=== PATIENT | female | born 1995 | race Caucasian/White ===

== ENCOUNTER 2021-02-03 18:40 | Inpatient (IN) | payer OTHER ==
[~2021-02-03] VITALS: Ht 64 cm; Wt 90.8 kg
[2021-02-03] VITALS (15 sets, daily range): BP systolic 95–122; BP diastolic 50–74
[2021-02-03] MEDS ORDERED: TERBUTALINE INJ 1 MG/ML (BRETHINE) AMP SC PRN (19:45)
[2021-02-03] MEDS ORDERED: D5 LR IV SOLUTION 1,000 ML IV ONE (19:50)
[2021-02-03] MEDS: D5 LR IV SOLUTION 1,000 ML IV SCH (20:09)
[2021-02-03] MEDS: IBUPROFEN 600 MG (MOTRIN) TAB PO SCH (20:25)
[2021-02-03 20:28] LABS: BASOPHILS % (AUTO) 0 % (0-10); EOSINOPHILS # (AUTO) 0.3 10^3/uL (0.0-0.3); EOSINOPHILS % (AUTO) 4 % (0-10); HEMATOCRIT 32 % (35-52); HEMOGLOBIN 10.3 g/dL (11.5-16.0); LYMPHOCYTES # (AUTO) 2.4 10^3/uL (1.0-4.0); LYMPHOCYTES % (AUTO) 25 % (12-44); MEAN CORPUSCULAR HEMOGLOBIN 27 pg (25-34); MEAN CORPUSCULAR HGB CONC 32 g/dL (32-36); MEAN CORPUSCULAR VOLUME 85 fL (80-99); MEAN PLATELET VOLUME 12.4 fL (9.0-12.2); MONOCYTES # (AUTO) 0.8 10^3/uL (0.0-1.0); MONOCYTES % (AUTO) 9 % (0-12); NEUTROPHILS # (AUTO) 5.7 10^3/uL (1.8-7.8); NEUTROPHILS % (AUTO) 62 % (42-75); PLATELET COUNT 195 10^3/uL (130-400); WHITE BLOOD COUNT 9.3 10^3/uL (4.3-11.0)
[2021-02-03] MEDS ORDERED: LACTATED RINGERS 1,000 ML IV ONE ×3 (20:30→20:34)
[2021-02-03] MEDS ORDERED: CATHETER FLUSH 10 ML SYR IV SCH (22:00)
[2021-02-04] VITALS (74 sets, daily range): BP systolic 88–163; BP diastolic 50–78
[2021-02-04] MEDS: D5 LR IV SOLUTION 1,000 ML IV SCH ×3 (02:51→18:47)
[2021-02-04] MEDS ORDERED: OXYTOCIN PRE-MIX DRIP 500 ML IV SCH ×2 (08:30→21:00)
[2021-02-04] MEDS ORDERED: ONDANSETRON 4 MG/2 ML (SDV) Z0FRAN IVP PRN (10:30)
[2021-02-04] MEDS ORDERED: fentaNYL INJ 100 MCG/2 ML AMP ONE (13:39)
[2021-02-04] MEDS ORDERED: fentaNYL INJ 100 MCG/2 ML AMP IVP PRN (13:45)
[2021-02-04] MEDS ORDERED: IBUPROFEN 600 MG (MOTRIN) TAB PO ONE (20:32)
--- NOTE | 2021-02-04 20:49 | History & Physical-OB ---
OB - Chief Complaint & HPI Date/Time Date of Admission: Date of Admission: Feb 03, 2021 at 18:40 Date seen by a Provider: Feb 04, 2021 Time Seen by a Provider: 08:55 Chief Complaint/History OB-Reason for Admission/Chief: Induction of Labor Hx : 4 Hx Para: 3 Expected Date of Delivery: Feb 08, 2021 Gestational Age in Weeks: 39 Gestational Age in Days: 2 Other reason for admission: Desires Elective IOL Allergies and Home Medications Allergies Coded Allergies: No Known Drug Allergies (Unverified , 02/03/21) Patient Home Medication List Home Medication List Reviewed: Yes OB - History Hx of Present Care: Yes (Late Care) Ultrasounds: Normal mid trimester US Obstetrical Complications: None Medical Complications: None Information Induced Hypertension: No Maternal Gestational Diabetes: No Hemorrhage: No Obstetrical History Hx : 4 Hx Para: 3 Hx # Term Pregnancies: 3 Number of Living Children: 3 Patient Past Medical History N/A Immunizations Hepatitis A: No Hepatitis B: No Tetanus Booster (TDap): Less than 5yrs Rubella: immune RPR/VDRL: Negative GBS Status: Negative HBsAG: Negative OB - Admission Exam Physical Exam Vitals: Vital Signs 02/03/21 02/04/21 02/04/21 02/04/21 20:39 15:00 18:00 18:30 Temp 36.8 Pulse 58 Resp 18 B/P (MAP) 116/56 (76) Pulse Ox 98 O2 Delivery Room Air HEENT: NCAT Heart: Rhythm Normal Lungs: Clear Abdomen: Gravid Cervical Dilatation: 5cm Effacement: 75% Station: -2 Membranes: Intact Heart Rate: 140's Accelerations: Accelerations Present Decelerations: No Decelerations Short Term Variability: Present Fpc Variability: Average (6-25) Contractions on Admission: < 5 Minutes Apart Intensity: Moderate Sheridan Scoring Tool (Modified) Dilation (cm): 1-2cm (1) Effacement (%): 51-79% (2) Descent/Station: -2 (1) Cervix Consistency: Soft (2) Cervix Position: Middle/Mid-Position (1) Add 1 point for: Each previous vaginal delivery (1) Sheridan Score: 10 OB - Assessment/Plan/Diagnosis Assessment Assessment: induction of labor Admission Dx Third trimester 39 weeks gestation Admission Status: Inpatient Order (span 2 midnights) Reason for Inpatient Admission: Labor Plan Plan: Induction Other Plan 25 yo @ 39.2 wga here for elective IOL Plan - Cytotec/Pitocin protocol - Desires Natural delivery - GBS neg CHARITY STEVENSON MD Feb 04, 2021 20:49
--- NOTE | 2021-02-04 20:53 | OB Labor & Delivery Record ---
Vag Delivery Note Vag Delivery Note Date of Delivery: 02/04/21 Preoperative Diagnosis: Brittany Berumen is a (25 /Para 4/3 ,Gestational Age (wks)39.2 here to Elective IOL Postoperative Diagnosis: Same Surgeon: CHARITY STEVENSON Rock Crushing Machine Operator: Edyta Dominguez, MS4 Anesthesia: Natural Delivery Type: @ 1815 Findings: Viable male , apgars 9/9, weight [] Lacerations: 1st degree perineal laceration Intact placenta with 3 vessel cord. Nuchal cord x1, body cord or shoulder dystocia Estimated Blood Loss: 100 ml Complications: None Condition: Stable Description of Procedure: The patient is a 25 year old female who presented for IOL. She was admitted and informed consent was obtained. Her labor course was unremarkable. She progressed to complete dilatation and began to push. She was then set up for delivery. The 's head was delivered atraumatically in the CHAS position. The shoulders and remainder of the 's body were then delivered without difficulty. Upon delivery, the head was held below the level of the perineum and the mouth and nares were bulb suctioned. The cord was doubly clamped and cut by FOB and the was attended to by the pediatric staff on maternal abdomen. An intact placenta with 3-vessel cord delivered via Nava @ 182 and there was found to be minimal bleeding.~ Vigorous fundal massage was performed and the fundus was found to be firm. IV oxytocin was given. Examination of the vagina and perineum revealed a 1st degree perineal laceration that did not require repair. Following the repair, sponge, instrument and needle counts were correct. Mom and baby were both in stable condition in the labor suite. Vitals - Labs Vital Signs - I&O Vital Signs Date Time Temp Pulse Resp B/P (MAP) Pulse Ox O2 Delivery O2 Flow Rate FiO2 02/04/21 18:30 18 Room Air 02/04/21 18:15 18 Room Air 02/04/21 18:00 58 18 116/56 (76) Room Air 02/04/21 17:45 18 Room Air 02/04/21 17:30 57 18 111/59 (76) Room Air 02/04/21 17:15 61 18 107/51 (69) Room Air 02/04/21 17:00 18 Room Air 02/04/21 16:45 63 18 90/51 (64) Room Air 02/04/21 16:30 59 18 107/59 (75) Room Air 02/04/21 16:15 18 Room Air 02/04/21 16:00 60 18 112/60 (77) Room Air 02/04/21 15:45 55 18 107/59 (75) Room Air 02/04/21 15:30 59 18 112/61 (78) Room Air 02/04/21 15:15 60 18 127/60 (82) Room Air 02/04/21 15:00 36.8 57 18 112/59 (76) Room Air 02/04/21 14:45 62 18 109/55 (73) Room Air 02/04/21 14:30 63 18 106/58 (74) Room Air 02/04/21 14:15 63 18 104/59 (74) Room Air 02/04/21 14:00 18 Room Air 02/04/21 13:45 70 18 106/63 (77) Room Air 02/04/21 13:30 65 18 108/56 (73) Room Air 02/04/21 13:13 60 18 109/57 (74) Room Air 02/04/21 13:00 57 18 126/66 (86) Room Air 02/04/21 12:45 57 18 126/66 (86) Room Air 02/04/21 12:30 57 18 126/66 (86) Room Air 02/04/21 12:15 36.5 70 18 108/75 (86) Room Air 02/04/21 12:00 57 18 126/66 (86) Room Air 02/04/21 11:45 52 18 91/53 (66) Room Air 02/04/21 11:30 52 20 91/53 (66) Room Air 02/04/21 11:15 52 20 96/53 (67) Room Air 02/04/21 11:00 62 20 111/57 (75) Room Air 02/04/21 10:45 74 20 119/58 (78) Room Air 02/04/21 10:30 62 20 116/59 (78) Room Air 02/04/21 10:15 62 20 116/59 (78) Room Air 02/04/21 10:00 68 20 115/66 (82) Room Air 02/04/21 09:30 65 20 118/59 (78) Room Air 02/04/21 09:00 67 20 115/76 (89) Room Air 02/04/21 08:40 72 20 115/69 (84) 02/04/21 08:30 63 20 124/57 (79) Room Air 02/04/21 08:00 36.6 61 20 139/78 (98) Room Air 02/04/21 07:40 59 20 117/65 (82) Room Air 02/04/21 07:00 36.4 64 20 109/74 (86) 02/04/21 06:40 67 18 93/55 (68) 02/04/21 06:20 71 18 119/55 (76) 02/04/21 06:00 73 18 107/54 (71) 02/04/21 05:40 66 18 116/62 (80) 02/04/21 05:20 36.2 63 18 97/59 (72) 02/04/21 05:00 61 20 107/69 (82) 02/04/21 04:40 61 20 116/60 (78) 02/04/21 04:20 61 20 91/53 (66) 02/04/21 04:00 61 18 90/53 (65) 02/04/21 03:40 63 18 118/58 (78) 02/04/21 03:27 63 20 88/53 (65) 02/04/21 03:20 67 20 111/64 (80) 02/04/21 03:00 71 20 107/71 (83) 02/04/21 02:40 63 20 106/59 (75) 02/04/21 02:20 63 18 108/64 (79) 02/04/21 02:00 60 20 89/50 (63) 02/04/21 01:40 63 18 88/53 (65) 02/04/21 01:20 36.2 57 18 117/65 (82) 02/04/21 01:00 61 20 128/65 (86) 02/04/21 00:40 64 20 120/62 (81) 02/04/21 00:20 67 20 117/62 (80) 02/04/21 00:00 56 20 117/75 (89) 02/03/21 23:40 63 20 110/56 (74) 02/03/21 23:20 58 20 95/50 (65) 02/03/21 23:00 75 20 100/57 (71) 02/03/21 22:40 69 20 107/56 (73) 02/03/21 22:20 64 18 110/59 (76) 02/03/21 22:00 77 18 102/50 (67) 02/03/21 21:40 36.7 73 20 113/58 (76) 02/03/21 21:20 85 20 110/62 (78) 02/03/21 21:00 79 20 103/58 (73) CHARITY STEVENSON MD Feb 04, 2021 20:53
[2021-02-04] MEDS ORDERED: BENZOCAINE/MENTHOL (DERMOPLAST) 56 ML CAN TP PRN (21:00)
[2021-02-04] MEDS ORDERED: MEASLES,MUMPS,RUBELLA 1 EA INJ SQ ONE (21:00)
[2021-02-04] MEDS ORDERED: WITCH HAZEL(TUCKS) 40 EA JAR TOP PRN (21:00)
[2021-02-04] MEDS: DOCUSATE SODIUM 100 MG (COLACE) CAP PO SCH (21:00)
[2021-02-04] MEDS ORDERED: TETANUS,DIPTH,PERTUSS P/F (BOOSTRIX) 0.5 ML VIAL IM ONE (21:00)
[2021-02-04] MEDS ORDERED: CATHETER FLUSH 10 ML SYR IV SCH (22:00)
[2021-02-05 01:00] VITALS: BP 111/64
[2021-02-05 04:45] VITALS: BP 103/60
[2021-02-05 06:10] LABS: BASOPHILS % (AUTO) 0 % (0-10); EOSINOPHILS # (AUTO) 0.1 10^3/uL (0.0-0.3); EOSINOPHILS % (AUTO) 1 % (0-10); HEMATOCRIT 30 % (35-52); HEMOGLOBIN 9.6 g/dL (11.5-16.0); LYMPHOCYTES # (AUTO) 2.2 10^3/uL (1.0-4.0); LYMPHOCYTES % (AUTO) 21 % (12-44); MEAN CORPUSCULAR HEMOGLOBIN 28 pg (25-34); MEAN CORPUSCULAR HGB CONC 32 g/dL (32-36); MEAN CORPUSCULAR VOLUME 88 fL (80-99); MEAN PLATELET VOLUME 12.9 fL (9.0-12.2); MONOCYTES # (AUTO) 0.9 10^3/uL (0.0-1.0); MONOCYTES % (AUTO) 8 % (0-12); NEUTROPHILS # (AUTO) 7.1 10^3/uL (1.8-7.8); NEUTROPHILS % (AUTO) 69 % (42-75); PLATELET COUNT 169 10^3/uL (130-400); WHITE BLOOD COUNT 10.3 10^3/uL (4.3-11.0)
[2021-02-05] MEDS: ACETAMINOPHEN 500 MG TAB (TYLENOL) PO SCH ×3 (07:57→15:43)
[2021-02-05] MEDS: DOCUSATE SODIUM 100 MG (COLACE) CAP PO SCH (07:57)
[2021-02-05] MEDS: IBUPROFEN 600 MG (MOTRIN) TAB PO SCH ×2 (07:57→15:43)
[2021-02-05 08:00] VITALS: BP 100/57
--- NOTE | 2021-02-05 08:17 | Progress Note - Newborn ---
NB-Subjective/ROS Subjective/ROS Subjective/Events-last exam No complaints. Pain well controlled on PO pain medications NB-Exam Examination Vitals Vital Signs Date Time Temp Pulse Resp B/P (MAP) Pulse Ox O2 Delivery O2 Flow Rate FiO2 02/05/21 04:45 36.3 60 16 103/60 (74) Room Air 02/05/21 01:00 36.6 56 16 111/64 (80) Room Air 02/04/21 23:15 53 18 106/57 (73) Room Air 02/04/21 23:00 58 18 107/55 (72) Room Air 02/04/21 22:45 57 18 104/56 (72) Room Air 02/04/21 22:30 65 18 108/60 (76) Room Air 02/04/21 22:15 59 18 102/61 (75) Room Air 02/04/21 22:00 56 18 104/62 (76) Room Air 02/04/21 21:45 66 18 111/67 (82) Room Air 02/04/21 21:30 54 18 101/54 (70) Room Air 02/04/21 21:15 57 18 106/58 (74) Room Air 02/04/21 21:00 57 18 114/59 (77) Room Air 02/04/21 20:45 58 18 125/60 (81) Room Air 02/04/21 20:30 36.4 56 18 111/53 (72) Room Air 02/04/21 20:15 Room Air 02/04/21 20:00 Room Air 02/04/21 19:45 Room Air 02/04/21 19:30 60 18 114/56 (75) Room Air 02/04/21 19:15 91 18 163/77 (105) Room Air 02/04/21 19:00 68 18 111/72 (85) Room Air 02/04/21 18:45 36.7 53 18 106/60 (75) Room Air 02/04/21 18:30 18 Room Air 02/04/21 18:15 18 Room Air 02/04/21 18:00 58 18 116/56 (76) Room Air 02/04/21 17:45 18 Room Air 02/04/21 17:30 57 18 111/59 (76) Room Air 02/04/21 17:15 61 18 107/51 (69) Room Air 02/04/21 17:00 18 Room Air 02/04/21 16:45 63 18 90/51 (64) Room Air 02/04/21 16:30 59 18 107/59 (75) Room Air 02/04/21 16:15 18 Room Air 02/04/21 16:00 60 18 112/60 (77) Room Air 02/04/21 15:45 55 18 107/59 (75) Room Air 02/04/21 15:30 59 18 112/61 (78) Room Air 02/04/21 15:15 60 18 127/60 (82) Room Air 02/04/21 15:00 36.8 57 18 112/59 (76) Room Air 02/04/21 14:45 62 18 109/55 (73) Room Air 02/04/21 14:30 63 18 106/58 (74) Room Air 02/04/21 14:15 63 18 104/59 (74) Room Air 02/04/21 14:00 18 Room Air 02/04/21 13:45 70 18 106/63 (77) Room Air 02/04/21 13:30 65 18 108/56 (73) Room Air 02/04/21 13:13 60 18 109/57 (74) Room Air 02/04/21 13:00 57 18 126/66 (86) Room Air 02/04/21 12:45 57 18 126/66 (86) Room Air 02/04/21 12:30 57 18 126/66 (86) Room Air 02/04/21 12:15 36.5 70 18 108/75 (86) Room Air 02/04/21 12:00 57 18 126/66 (86) Room Air 02/04/21 11:45 52 18 91/53 (66) Room Air 02/04/21 11:30 52 20 91/53 (66) Room Air 02/04/21 11:15 52 20 96/53 (67) Room Air 02/04/21 11:00 62 20 111/57 (75) Room Air 02/04/21 10:45 74 20 119/58 (78) Room Air 02/04/21 10:30 62 20 116/59 (78) Room Air 02/04/21 10:15 62 20 116/59 (78) Room Air 02/04/21 10:00 68 20 115/66 (82) Room Air 02/04/21 09:30 65 20 118/59 (78) Room Air 02/04/21 09:00 67 20 115/76 (89) Room Air 02/04/21 08:40 72 20 115/69 (84) 02/04/21 08:30 63 20 124/57 (79) Room Air 02/04/21 08:00 36.6 61 20 139/78 (98) Room Air 02/04/21 07:40 59 20 117/65 (82) Room Air 02/04/21 07:00 36.4 64 20 109/74 (86) 02/04/21 06:40 67 18 93/55 (68) 02/04/21 06:20 71 18 119/55 (76) 02/04/21 06:00 73 18 107/54 (71) 02/04/21 05:40 66 18 116/62 (80) 02/04/21 05:20 36.2 63 18 97/59 (72) 02/04/21 05:00 61 20 107/69 (82) 02/04/21 04:40 61 20 116/60 (78) 02/04/21 04:20 61 20 91/53 (66) 02/04/21 04:00 61 18 90/53 (65) 02/04/21 03:40 63 18 118/58 (78) 02/04/21 03:27 63 20 88/53 (65) 02/04/21 03:20 67 20 111/64 (80) 02/04/21 03:00 71 20 107/71 (83) 02/04/21 02:40 63 20 106/59 (75) 02/04/21 02:20 63 18 108/64 (79) 02/04/21 02:00 60 20 89/50 (63) 02/04/21 01:40 63 18 88/53 (65) 02/04/21 01:20 36.2 57 18 117/65 (82) 02/04/21 01:00 61 20 128/65 (86) 02/04/21 00:40 64 20 120/62 (81) 02/04/21 00:20 67 20 117/62 (80) 02/04/21 00:00 56 20 117/75 (89) 02/03/21 23:40 63 20 110/56 (74) 02/03/21 23:20 58 20 95/50 (65) 02/03/21 23:00 75 20 100/57 (71) 02/03/21 22:40 69 20 107/56 (73) 02/03/21 22:20 64 18 110/59 (76) 02/03/21 22:00 77 18 102/50 (67) 02/03/21 21:40 36.7 73 20 113/58 (76) 02/03/21 21:20 85 20 110/62 (78) 02/03/21 21:00 79 20 103/58 (73) 02/03/21 20:40 66 20 113/68 (83) 02/03/21 20:39 36.9 94 18 98 Room Air 02/03/21 20:20 82 20 106/54 (71) 02/03/21 20:00 87 18 122/69 (86) 02/03/21 19:40 73 18 99/55 (70) 02/03/21 19:30 36.9 94 18 121/74 (90) 98 Room Air Weight/Height(Last Documented) Weight (Calculated Grams): 71062.000 Labs Labs Laboratory Tests 02/05/21 05:36: White Blood Count 10.3, Red Blood Count 3.45L, Hemoglobin 9.6L, Hematocrit 30L, Mean Corpuscular Volume 88, Mean Corpuscular Hemoglobin 28, Mean Corpuscular Hemoglobin Concent 32, Red Cell Distribution Width 14.6H, Platelet Count 169, Mean Platelet Volume 12.9H, Immature Granulocyte % (Auto) 0, Neutrophils (%) (Auto) 69, Lymphocytes (%) (Auto) 21, Monocytes (%) (Auto) 8, Eosinophils (%) (Auto) 1, Basophils (%) (Auto) 0, Neutrophils # (Auto) 7.1, Lymphocytes # (Auto) 2.2, Monocytes # (Auto) 0.9, Eosinophils # (Auto) 0.1, Basophils # (Auto) 0.0, Immature Granulocyte # (Auto) 0.0 CHARITY STEVENSON MD Feb 05, 2021 08:17
[2021-02-05 15:44] VITALS: BP 115/60
--- NOTE | 2021-02-05 21:33 | Discharge Summary ---
Diagnosis/Chief Complaint Date of Admission Feb 03, 2021 at 18:40 Date of Discharge 02/05/21 Admission Diagnosis Admission Diagnosis Third Trimester 39 week gestation Discharge Diagnosis Uncomplicated of male infant Discharge Summary-Simple/Stand Procedures Uncomplicated SROM Discharge Physical Examination Allergies: Coded Allergies: No Known Drug Allergies (Unverified , 02/03/21) Vitals & I&Os Vital Sign - Last 12Hours Date Time Temp Pulse Resp B/P (MAP) Pulse Ox O2 Delivery O2 Flow Rate FiO2 02/05/21 15:44 36.5 46 18 115/60 (78) 100 Room Air Intake and Output 02/04/21 23:59 Intake Total 1300 ml Balance 1300 ml General Appearance: Alert, Oriented X3, Cooperative, No Acute Distress HEENT: Mucous Memb Moist/Latty Respiratory: Clear to Auscultation, Normal Air Movement Cardiovascular: Regular Rate, No Murmurs Abdominal: Normal Bowel Sounds, Soft, No Tenderness, Other (fundus firm and below umbilicus) Extremities: No Edema, No Tenderness/Swelling Skin: No Rashes, No Breakdown Neuro: Normal Speech Psych/Mental Status: Mental Status NL, Mood NL Hospital Course Was the Problem List Reviewed?: Yes See final discharge diagnosis. Discussion & Recommendations 25 yo G4 now P4 delivered uncomplicated @ 39 weeks. Discharge Condition at discharge Stable Instructions to patient/family Please see electronic discharge instructions given to patient. Discharge Medications Reviewed and agree with Discharge Medication list on patient's Discharge Instruction sheet Copy Copies To 1: CHARITY STEVENSON MD, HOLLY R MD Feb 05, 2021 21:33
[2021-02-05] MEDS ORDERED: IBUP-844 PO (21:34)
--- NOTE | 2021-02-05 21:35 | Discharge Summary ---
Discharge Inst-[facility] Reconcile Patient Problems Problems Reviewed?: Yes Depart Medications New, Converted or Re-Newed RX: Transmitted to Pharmacy New Medications: Ibuprofen (Ibu) 600 Mg Tablet 600 MG PO Q6H, #60 TAB Follow Up/Instructions Goal/Follow Up: [address] Connolly for Post visit Activity Activity: Activity as Tolerated Driving Instructions: You May Drive NO SMOKING: NO SMOKING Nothing Inside Vagina: No Douching, No [place], No Tampons Diet Discharge Diet: No Restrictions Symptoms to Report to : Swelling Increased, Bleeding Excessive, Fever Over 101 Degrees F For Any Problems or Questions: Contact Your Physician CHARITY CONNOLLY MD Feb 05, 2021 21:35
[2021-02-05 21:50] VITALS: BP 108/58
== END 2021-02-05 22:00 | disposition home or self-care (01) | DRG 807 ==
LOC: LDRP 18:40
PROVIDERS: ADMIT Family Medicine; ATTEND Family Medicine
PROC: 10E0XZZ Delivery of Products of Conception, External Approach (ICD-10-PCS; principal; 2021-02-04)
PROC: 0HQ9XZZ Repair Perineum Skin, External Approach (ICD-10-PCS; 2021-02-04)
PROC: 3E033VJ Introduction of Other Hormone into Peripheral Vein, Percutaneous Approach (ICD-10-PCS; 2021-02-04)
DX: O69.81X0 Labor and delivery complicated by cord around neck, without compression, not applicable or unspecified (principal); Z37.0 Single live birth; O70.0 First degree perineal laceration during delivery; Z3A.39 39 weeks gestation of pregnancy
CPT/HCPCS: 36415; 85025; 86780; 86850; 86900; 86901